=== PATIENT | male | born 2000 | race African-American/Black ===

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

== ENCOUNTER 2023-03-17 03:52 | Emergency (ER) | payer OTHER, MEDICAID ==
[~2023-03-17] VITALS: Ht 175.3 cm; Wt 62.3 kg
[2023-03-17 04:02] VITALS: BP 114/72; PULSE 63; RESP 15; TEMP 98.4; O2SAT 100
== END 2023-03-17 05:31 | disposition left against medical advice (07) ==
LOC: ER 03:52
DX: K08.89 Other specified disorders of teeth and supporting structures (principal); Z53.21 Procedure and treatment not carried out due to patient leaving prior to being seen by health care provider
CPT/HCPCS: 99281